=== PATIENT | male | born 1980 | race Caucasian/White ===

== ENCOUNTER 2016-11-17 15:05 | Emergency (ER) | payer OTHER ==
[2016-11-17] MEDS ORDERED: predniSONE 20 MG TABLET PO STA (15:24)
[2016-11-17] MEDS ORDERED: EPINEPHrine 1 MG/ML AMP IM STA (15:24)
--- NOTE | 2016-11-17 15:26 | ED Physician Documentation ---
History of Present Illness - Stated complaint Stated Complaint: STUNG BY BEE - Chief complaint Chief Complaint: Allergic Rx - History obtained from History obtained from: Patient - History of Present Illness Timing: Other (36-year-old gentleman without history of significant bee sting reaction was stung on the inside of the left lower lip at work at about 12:30 PM today and has progressive swelling of the face without retropharyngeal swelling, diffuse rash, or shortness of breath.) Review of Systems Constitutional: reports: Reviewed and negative Nose: reports: Reviewed and negative Throat: reports: Reviewed and negative Cardiac: reports: Reviewed and negative PD PAST MEDICAL HISTORY - Past Medical History Past Medical History: No - Past Surgical History Past Surgical History: No - Present Medications Home Medications: Ambulatory Orders Medication Instructions Recorded Confirmed predniSONE [Deltasone] 60 mg PO DAILY 3 Days tablet 11/17/16 - Allergies Allergies/Adverse Reactions: Allergies Allergy/AdvReac Type Severity Reaction Status Date / Time venom-wasp Allergy Edema Verified 11/17/16 15:37 - Social History Does the pt smoke?: Yes Smoking Status: Current every day smoker Does the pt drink ETOH?: No Does the pt have substance abuse?: No - Immunizations Immunizations are current?: No Immunizations: TDAP >10years/unknown - POLST Patient has POLST: No PD ED PE NORMAL - Vitals Vital signs reviewed: Yes - General General: Alert and oriented X 3, No acute distress - HEENT HEENT: PERRL, EOMI - Neck Neck: Supple, no meningeal sign, No bony TTP, No adenopathy - Cardiac Cardiac: RRR, No murmur - Abdomen Abdomen: Soft, Non tender - Neuro Neuro: Alert and oriented X 3, Normal speech - Psych Psych: Normal mood, Normal affect PD ED PE EXPANDED - HEENT HEENT Visual: 1 - rash (Slight Redness and significant angioedema including the entirety of the lower lip and the left side of the anterior neck without retropharyngeal edema or uvular edema.) Results - Vitals Vitals: Vital Signs - 24 hr 11/17/16 15:12 Temperature 36.6 C Heart Rate 69 Respiratory 16 Rate Blood Pressure 127/81 H O2 Saturation 99 Oxygen O2 Source Room air PD MEDICAL DECISION MAKING - ED course ED course: 36-year-old gentleman with significant local reaction to bee sting, given the location, he was administered epinephrine and steroids and watch for an hour without clinical change. Departure - Departure Disposition: 01 Home, Self Care Clinical Impression: Local reaction to bee sting Qualifiers: Encounter type: initial encounter Injury intent: accidental or unintentional Qualified Code(s): T63.441A - Toxic effect of venom of bees, accidental ( unintentional), initial encounter Condition: Good Record reviewed to determine appropriate education?: Yes Instructions: ED Bite Sting Insect Local Allergic React Prescriptions: predniSONE [Deltasone] 60 mg PO DAILY 3 Days tablet Comments: Call your doctor to arrange a follow-up appointment, make the next available appointment. In the interim, return anytime if worse or if new symptoms develop. Your blood pressure was elevated today on check into the emergency department. This does not mean that you have hypertension, it is a common phenomenon to come to the emergency department and have elevated blood pressure. I recommend that she see your primary care physician within the week to have it rechecked when you are feeling better.
[2016-11-17] MEDS ORDERED: predniSONE 20 MG TABLET ONE (15:33)
[2016-11-17] MEDS ORDERED: EPINEPHrine 1 MG/ML AMP ONE (15:34)
[2016-11-17 16:38] VITALS: BP 127/83
== END 2016-11-17 16:38 | disposition home or self-care (01) ==
LOC: ED 15:05
DX: T63.441A Toxic effect of venom of bees, accidental (unintentional), initial encounter (principal); R03.0 Elevated blood-pressure reading, without diagnosis of hypertension; F17.200 Nicotine dependence, unspecified, uncomplicated
CPT/HCPCS: 96372; 99283; J7512

== ENCOUNTER 2021-01-16 08:00 | Outpatient (CLI) | payer OTHER | END 2021-01-16 23:59 | disposition home or self-care (01) | LOC: LAB.S 08:00 | PROVIDERS: ATTEND Physician Assistant | DX: J06.9 Acute upper respiratory infection, unspecified (principal); Z20.822 Contact with and (suspected) exposure to COVID-19 ==

== ENCOUNTER 2021-09-05 15:20 | Outpatient (CLI) | payer OTHER ==
--- NOTE | 2021-09-05 18:37 | XRAY Report ---
PROCEDURE: Shoulder 3 View LT INDICATIONS: STRAIN OF LEFT SHOULDER TECHNIQUE: 3 views of the shoulder were acquired. COMPARISON: None. FINDINGS: Bones: No fractures or dislocations. No suspicious bony lesions. Visualized ribs appear intact. Soft tissues: No suspicious soft tissue calcifications. IMPRESSION: Unremarkable left shoulder radiographs Reviewed by: Homero Arzate MD on 09/05/2021 5:36 PM [facility] Approved by: Homero Arzate MD on 09/05/2021 5:36 PM [facility]DT Station ID: [id number]
== END 2021-09-05 15:21 | disposition home or self-care (01) ==
LOC: DI.S 15:20
PROVIDERS: ATTEND Emergency Medicine
DX: S46.012A Strain of muscle(s) and tendon(s) of the rotator cuff of left shoulder, initial encounter (principal)